=== PATIENT | male | born 1930 | race Caucasian/White ===

== ENCOUNTER → 2017-04-22 | Outpatient (REF) | payer MEDICARE ==
[~2017-04-22] MED LIST: ASPI1TAB15 PO; ATRO1OPD PO; DILA100C PO; DOCU100T8 PO; FLOM5CAP PO; LEVO25TA5 PO; LEVO75TA34 PO; LORA1TAB12 PO; LOSA25TA8 PO; METF500T13 PO; MORP1SOL PO; MULT1TAB8 PO; OMEP40CA2 PO; PHEN50CH4 PO; PHEN64.8 PO; SYNT50TA PO; TYLE325T5 PO; VITA10002 PO; VITMTA PO
== END ==
LOC: M LAB REF 16:02
PROVIDERS: ATTEND Family Medicine
DX: J69.0 Pneumonitis due to inhalation of food and vomit (principal); G40.909 Epilepsy, unspecified, not intractable, without status epilepticus; I50.32 Chronic diastolic (congestive) heart failure; I11.0 Hypertensive heart disease with heart failure; E11.9 Type 2 diabetes mellitus without complications; Z79.899 Other long term (current) drug therapy

== ENCOUNTER → 2017-06-06 | Outpatient (REF) ==
[2017-06-06 18:35] LABS: MICROSCOPIC INDICATED? MAN YES (NO)
[2017-06-06 18:44] LABS: RBC, URINE 0-1 /hpf (0-3); WBC, URINE 15-20 /hpf (0-3)
[2017-06-06 18:45] LABS: CALCIUM OXALATE CRYSTALS,URINE LARGE AMOUNT /hpf; HYALINE CAST, URINE NONE SEEN /lpf (0-1); SQUAMOUS EPITHELIAL CELL URINE SMALL AMOUNT /hpf (SMALL AMT)
[2017-06-06 18:46] LABS: BACTERIA, URINE MOD AMOUNT; MICROSCOPIC EXAM PERFORMED
== END ==
LOC: M LAB REF 17:03
DX: I50.9 Heart failure, unspecified (principal)